=== PATIENT | female | born 1955 | race Caucasian/White ===

== ENCOUNTER → 2019-01-18 | Outpatient (CLI) | payer BC, SELFPAY | PROVIDERS: PCP Family Medicine Adolescent Medicine; Visit Provider Family Medicine Adolescent Medicine | DX: R06.02 Shortness of breath (principal) | CPT/HCPCS: 71046; 77063; 77067; 77080 ==

== ENCOUNTER 2020-01-31 08:07 | Outpatient (CLI) | payer BC, SELFPAY ==
--- NOTE | ~2020-01-31 | MM_ITS ---
EXAMINATION: MM screening [facility] BI w tomasa HISTORY: Screening TECHNIQUE: Craniocaudal and mediolateral oblique 3-D tomosynthesis images were obtained and synthetic 2-D images were generated. CAD analysis was submitted and interpreted. COMPARISON: Comparison to multiple prior studies sequentially, with oldest reviewed study dated 05/2014. BREAST PARENCHYMAL COMPOSITION: There are scattered areas of fibroglandular density. FINDINGS: Benign-appearing right breast masses are not significantly changed. Bilateral breast asymme tries are stable. There is no evidence of suspicious mass, calcification, or architectural distortion to suggest malignancy in either breast. There has been no suspicious interval change. IMPRESSION: 1. No mammographic evidence of malignancy. 2. Recommend routine screening mammography in one year. BI-RADS Category 2: Benign finding(s). Reviewed, dictated and finalized at location A.
== END 2020-01-31 08:08 | disposition home or self-care (01) ==
LOC: ANHIMG 08:11
PROVIDERS: PCP Family Medicine Adolescent Medicine; Visit Provider Obstetrics & Gynecology
DX: Z12.31 Encounter for screening mammogram for malignant neoplasm of breast (principal)
CPT/HCPCS: 77063; 77067

== ENCOUNTER 2020-02-10 08:37 | Outpatient (NON) | payer BC, SELFPAY ==
[2020-02-11 14:12] LABS: SARS-CoV-2 RNA PCR Positive
== END 2020-02-10 08:38 ==
LOC: ANHCOVIDDT 08:39
PROVIDERS: PCP Family Medicine Adolescent Medicine; Visit Provider Family Medicine Adolescent Medicine
DX: U07.1 COVID-19 (principal)
CPT/HCPCS: 87635; C9803; U0003

== ENCOUNTER 2021-02-04 08:44 | Outpatient (CLI) | payer OTHER, MEDICARE, SELFPAY ==
--- NOTE | ~2021-02-04 | MM_ITS ---
EXAMINATION: MM screening [facility] BI w tomasa HISTORY: Screening TECHNIQUE: Craniocaudal and mediolateral oblique 3-D tomosynthesis images were obtained and synthetic 2-D images were generated. CAD analysis was submitted and interpreted. COMPARISON: Comparison to multiple prior studies sequentially, with oldest reviewed study dated 09/2015. BREAST PARENCHYMAL COMPOSITION: There are scattered areas of fibroglandular density. FINDINGS: There is no evidence of suspicious mass, calcification, or architectural distortion to sugg est malignancy in either breast. There has been no suspicious interval change. IMPRESSION: 1. No mammographic evidence of malignancy. 2. Recommend routine screening mammography in one year. BI-RADS Category 1: Negative Reviewed, dictated and finalized at location A.
[2021-02-04 08:57] LABS: Basophils Percent Auto 0.6 % (0.2-1.2); Eosinophils Absolute Auto 0.2 K/mm3 (0-0.3); Eosinophils Percent Auto 2.4 % (0-4.4); Immature Granulocyte Absolute 0.02 K/mm3 (0.00-0.031); Immature Granulocyte Percent A 0.3 % (0-0.5); Lymphocytes Absolute Auto 1.29 K/mm3 (0.9-3.2); Lymphocytes Percent Auto 19.7 % (18.3-44.2); Mean Corpuscular HGB Conc 32.6 g/dl (32-36); Mean Corpuscular Hemoglobin 32.3 pg (26-34); Mean Corpuscular Volume 99.3 fl (80-100); Mean Platelet Volume 10.7 fl (7.4-10.4); Monocytes Absolute Auto 0.7 K/mm3 (0.1-0.6); Monocytes Percent Auto 10.1 % (2.6-8.5); Neutrophils Absolute Auto 4.4 K/mm3 (1.3-6.7); Neutrophils Percent Auto 66.9 % (45.5-73.1); Platelet Count Result 249 k/mm3 (150-375); Red Blood Count 4.33 M/mm3 (4.2-5.4); Red Cell Distribution Width 12.7 % (11.5-14.5); White Blood Count 6.6 K/mm3 (4.5-10.0)
[2021-02-04 09:31] LABS: Alanine Aminotransferase 18 U/L (4-35); Albumin Level 4.2 g/dL (3.5-5.1); Alkaline Phosphatase 86 U/L (38-126); Anion Gap 8 mmol/L (8-16); Aspartate Amino Transferase 31 U/L (14-36); Blood Urea Nitrogen 15 mg/dL (7-17); Calcium 9.4 mg/dL (8.4-10.2); Carbon Dioxide 27 mmol/L (22-30); Chloride 105 mmol/L (98-107); Cholesterol 181 mg/dL (0-200); Estimated Glomerular Filt Rate > 60; Glucose 104 mg/dL (65-110); HDL Direct 83 mg/dL; Potassium 4.5 mmol/L (3.4-5.0); Sodium 140 mmol/L (137-145); Triglycerides 83 mg/dL (<150)
[2021-02-04 09:42] LABS: LDL Cholesterol Direct 76 mg/dL
[2021-02-04 10:16] LABS: Vitamin D 25 Hydroxy 62.1 ng/mL
== END 2021-02-04 08:45 | disposition home or self-care (01) ==
PROVIDERS: PCP Family Medicine Adolescent Medicine; Visit Provider Obstetrics & Gynecology
DX: Z12.31 Encounter for screening mammogram for malignant neoplasm of breast (principal); Z79.890 Hormone replacement therapy; Z79.899 Other long term (current) drug therapy
CPT/HCPCS: 36415; 77063; 77067; 80053; 80061; 82306; 84443; 85025

== ENCOUNTER 2021-08-18 00:19 | Day surgery (SDC) | payer OTHER, MEDICARE, SELFPAY ==
[2021-08-11 14:21] VITALS: BMI 39.5
[2021-08-18 06:29] VITALS: BP 173/79; PULSE 90; RESP 16; TEMP 36.7; O2SAT 98
[2021-08-18] MEDS: LACTATED RINGERS 1,000 ML 150 ML IV CONT (06:44)
--- NOTE | 2021-08-18 07:17 | WPDANESEPPF ---
Anes - Initial Pre Proc Eval Procedure: Operation Date: 08/18/21 07:30 Proposed Procedures p Esophagogastroduodenoscopy & Screening Colonoscopy - Demond Reis MD Date/Time: 08/18/21 07:17 Surgeon: Demond Reis MD Pre Op Diagnosis: family hx colon polyps, GERD, neoplasm screening Patient Data Age: 66 Gender: F Height: 1.63 m Weight: 103 kg Last Vital Signs Temp 36.7 C 08/18/21 06:29 Pulse 90 08/18/21 06:29 Resp 16 08/18/21 06:29 BP 173/79 H 08/18/21 06:29 Pulse Ox 98 08/18/21 06:29 Allergies Allergy/AdvReac Type Severity Reaction Status Date / Time Penicillins Allergy Intermediate Rash Verified 08/18/21 06:27 Home Medications Medication Instructions Recorded Confirmed Type loratadine 10 mg tablet 10 mg PO DAILY 01/26/20 08/18/21 History multivitamin,cm-qwsn-kzteaiks 1 tablet PO DAILY 01/26/20 08/18/21 History naproxen sodium 220 mg tablet 440 mg PO DAILY 01/26/20 08/18/21 History omeprazole 20 mg capsule,delayed 20 mg PO DAILY 01/26/20 08/18/21 History release estradiol 1 g VAGINAL WEEKLY #42.5 g 05/02/21 08/18/21 Rx estradiol 0.025 mg/24 hr weekly 1 patch TRANSDERM WEEKLY #12 patch 05/24/21 08/18/21 Rx transdermal patch melatonin 10 mg capsule 10 mg PO QHS 07/29/21 08/18/21 History [place]-3 Plus Vitamin D3 1 tab-cap PO DAILY 08/11/21 08/18/21 History Patient hx anesthesia problems: none Family hx anesthesia problems: none Results Review: All pre-operative results and documents have been reviewed as part of the pre-operative evaluation. [facility] Past Medical History Medical History Acid reflux Allergies Menopausal disorder Surgical History Surgical History H/O: hysterectomy History of section History of cholecystectomy Knee joint replacement status Family History Family History Father Malignant neoplasm of prostate Family history of congenital heart disease Mother Family history of malignant neoplasm of breast in first degree relative Diabetes mellitus Social History Social History Smoking status: Never smoker Alcohol intake: current Substance use: never Substance use type: does not use Living arrangements: with family Spiritual care concerns: No Anes - Eval Final PreProcedure Day of Procedure 08/18/21 07:17 Patient weight: obese Heart: regular rate and rhythm Lungs: clear to auscultation and normal air movement Airway: Mallampati scale class II Neurological: alert and oriented Last oral intake: >/= 8 hours ASA classification: III Emergent: no Anesthetic plan: proceed Anesthesia type and monitoring: general GIVS Results Review: All pre-operative results and documents have been reviewed as part of the pre-operative evaluation. Informed Consent: The patient's anesthetic plan and its attendant risks and benefits were discussed with the patient/family/POA. Questions were solicited and answers provided to the satisfaction of the patient/family/POA.
--- NOTE | 2021-08-18 07:19 | WPDGICN ---
Assessment and Plan Assessment and plan (1) Family history of colonic polyps: Code(s): Z83.71 - Family history of colonic polyps Status: Acute Assessment and Plan: Patient's father has had colon polyps. For this reason screening colonoscopy is advised at this time. Further recommendations will be given after endoscopy. (2) GERD (gastroesophageal reflux disease): Code(s): K21.9 - Gastro-esophageal reflux disease without esophagitis Status: Acute Assessment and Plan: Patient has ongoing GE reflux appears stable taking omeprazole 20mg p.o. daily. Plan is for EGD surveillance to exclude any organic disease. Further recommendations will be given after endoscopy. GI Consult Note Consult date/time: 08/18/21 07:19 HPI: Tory Santoyo is a 66 year old female Presents for colonoscopy an EGD. Patient family history is significant her father had colon polyps. Has been more than 5 years since last endoscopy. She presents today for screening colonoscopy she states that her weight appetite and bowel movements are normal. She denies abdominal pain she has had no bleeding. Additionally patient has a history of heartburn and acid reflux. Current medications include omeprazole 20mg p.o. daily which controls her symptoms. She denies any dysphagia or bleeding. She presents today for EGD to assess for any organic disease. Further recommendations will be given after endoscopy. Review of Systems Review of Systems: All systems reviewed & are unremarkable except as noted in HPI and below PMFSH Past Medical History Medical History Acid reflux Allergies Menopausal disorder Surgical History Surgical History H/O: hysterectomy History of section History of cholecystectomy Knee joint replacement status Family History Family History Father Malignant neoplasm of prostate Family history of congenital heart disease Mother Family history of malignant neoplasm of breast in first degree relative Diabetes mellitus Social History Social History Smoking status: Never smoker Alcohol intake: current Substance use: never Substance use type: does not use Living arrangements: with family Spiritual care concerns: No Meds Home Medications and Allergies Home Medications Medication Instructions Recorded Confirmed Type loratadine 10 mg tablet 10 mg PO DAILY 01/26/20 08/18/21 History multivitamin,vg-nnbz-jrmrpoag 1 tablet PO DAILY 01/26/20 08/18/21 History naproxen sodium 220 mg tablet 440 mg PO DAILY 01/26/20 08/18/21 History omeprazole 20 mg capsule,delayed 20 mg PO DAILY 01/26/20 08/18/21 History release estradiol 1 g VAGINAL WEEKLY #42.5 g 05/02/21 08/18/21 Rx estradiol 0.025 mg/24 hr weekly 1 patch TRANSDERM WEEKLY #12 patch 05/24/21 08/18/21 Rx transdermal patch melatonin 10 mg capsule 10 mg PO QHS 07/29/21 08/18/21 History [place]-3 Plus Vitamin D3 1 tab-cap PO DAILY 08/11/21 08/18/21 History Allergies Allergy/AdvReac Type Severity Reaction Status Date / Time Penicillins Allergy Intermediate Rash Verified 08/18/21 06:27 Vital Signs Vital Signs - 24 hr 08/18/21 06:29 Temperature 98.0 F Pulse Rate 90 Respiratory Rate 16 Blood Pressure 173/79 H Pulse Oximetry 98 Exam Narrative: Physical exam reveals patient be alert. Vital signs stable. HEENT exam is unremarkable. Patient is anicteric. Lungs are clear to auscultation and percussion. Heart is without murmur or extra sounds. Abdominal exam bowel sounds are present soft nontender with no hepatosplenomegaly. Digital external rectal exam is normal.
[2021-08-18 08:05] VITALS: BP 127/62; PULSE 89; RESP 25; O2SAT 100
--- NOTE | 2021-08-18 08:05 | SUR.OPER ---
EGD START: 731; END: 741. COLONOSCOPY START: 748; END: 800.
[2021-08-18 08:15] VITALS: BP 135/61; PULSE 73; RESP 20; O2SAT 98
[2021-08-18 08:25] VITALS: BP 148/62; PULSE 72; RESP 15; O2SAT 100
== END 2021-08-18 08:39 | disposition home or self-care (01) ==
PROVIDERS: PCP Family Medicine Adolescent Medicine; Visit Provider Internal Medicine Gastroenterology
PROC: 0DJ08ZZ Inspection of Upper Intestinal Tract, Via Natural or Artificial Opening Endoscopic (ICD-10-PCS; CPT 43235; principal; 2021-08-18 07:30)
DX: Z12.11 Encounter for screening for malignant neoplasm of colon (principal); D12.2 Benign neoplasm of ascending colon; K64.8 Other hemorrhoids; K57.30 Diverticulosis of large intestine without perforation or abscess without bleeding; Z83.71 Family history of colonic polyps; K31.7 Polyp of stomach and duodenum; K21.9 Gastro-esophageal reflux disease without esophagitis; Z79.890 Hormone replacement therapy; E66.9 Obesity, unspecified; Z68.39 Body mass index [BMI] 39.0-39.9, adult
CPT/HCPCS: 45385; 43251; 43239; 87081; 88305; J2704; J7120

== ENCOUNTER 2021-09-01 08:20 | Outpatient (CLI) | payer OTHER, MEDICARE, SELFPAY ==
--- NOTE | 2021-09-07 11:36 | WPDHOMESLEEP ---
Sleep Study - Home Unattended Date of Study: 09/01/21 Ordering Provider: Rodrick Michel APRN Interpreting Provider: Betsey Tompkins MD Home Sleep Study Type: Watch PAT Height: 1.63 m Weight: 102.058 kg Body Mass Index: 38.6 Neck Circumference (inches): 15 [place]: 7 Reason for Sleep Study Waking during the night not able to breathe Sleep History Tory Santoyo is a 66 year old female with 3 years of waking at night dreaming of her mother who and not being able to breathe at night. She was prescribed trazodone 50 mg which she used for about a month but it made her feel weird. During the night she wakes up and moves from the bed to the recliner. She wakes up several times during the night. Her father 89 years old has a history of poor sleep. Her mother at age 80 and was always sleeping in a recliner. She got a wedge to sleep on and got a new bed as well as the noise maker at night to help. She occasionally awakens from sleep feeling short of breath and occasionally awakens at night with heartburn, belching or coughing. She frequently snores and occasionally this is loud enough that others complain about it. She constantly has trouble sleeping with a cold. She occasionally wakes up gasping for breath at night. She frequently has breathing problems at night observed by others. She rarely sweats excessively at night. She does not notice her heart pounding or beating irregularly at night. She does not fall asleep during the day, does not fall asleep involuntarily or while driving. She does not have loss of muscle tone with strong emotion. She does not have daytime difficulties due to excessive sleepiness. She works full-time as a gastroenterology medical office scheduler. She does not feel paralyzed on waking or falling asleep. She does not have vivid dreamlike scenes upon awakening or falling asleep. She does not feel afraid to go to sleep. She rarely has nightmares. She rarely remembers her dreams. She occasionally has racing thoughts, feelings of sadness, depression and anxiety. She rarely has muscular tension. She does not notice parts of her body jerking and she does not kick at night. She occasionally has aching feelings in her legs at night. She occasionally has leg pain at night. She does not have morning jaw pain. She occasionally grinds her teeth during sleep. She occasionally is bothered by pain during the day and occasionally awakened by pain at night. She frequently wakes up feeling stiff in the morning with sore achy muscles or pain in the spine. She takes sedatives. She also takes antacids regularly. She reports a 10 lb weight gain in the last year. Normal bedtime is 9:30 p.m. falling asleep within 5 minutes typically waking 2-3 times at night for unclear reasons. If she has used a sedative earlier in the night she is able to fall asleep again pretty easily. If she has not taken a sedative earlier in the night it may take her an hour to fall asleep. When she wakes at night she gets up from the bed and moved to the recliner. She wakes the morning between 430 and 5:00 a.m.. Her weekend schedule is very similar. She may wake as late as 6:00 a.m.. She does not take naps in the afternoon or evening. She does not feel refreshed after a 10 or 15 minute nap. She feels better in the morning compared to other times of day. She occasionally has morning headaches. Only occasionally does she awaken feeling refreshed. She takes melatonin 10 mg at night; This may be the sedative that she is referring to.. Habits: Never smoked tobacco. Caffeine 5-6 diet Pepsi's per week so less than 1 per day. No alcohol or recreational drugs. [facility] Past Medical History Medical History Acid reflux Allergies Menopausal disorder Surgical History Surgical History H/O: hysterectomy History of section History
[2021-09-07 11:49] VITALS: BMI 38.6
== END 2021-09-02 10:09 | disposition home or self-care (01) ==
LOC: ANHCSM 08:20
PROVIDERS: PCP Family Medicine Adolescent Medicine; Visit Provider Nurse Practitioner Family
DX: G47.9 Sleep disorder, unspecified (principal); G47.33 Obstructive sleep apnea (adult) (pediatric)
CPT/HCPCS: 95800

== ENCOUNTER 2021-09-16 07:41 | Outpatient (CLI) | payer OTHER, MEDICARE, SELFPAY ==
--- NOTE | 2021-10-07 12:47 | WPDSLEEPSTUD ---
Sleep Study Date of Study: 09/16/21 Ordering Provider: Rodrick Michel APRN Interpreting Physician: Mahsa Franco, Sleep Study Type: BiPAP Titration Height: 1.63 m Weight: 104.326 kg Body Mass Index: 39.4 Neck Circumference (inches): 15.5 [place]: 3 Reason for Sleep Study The patient had a home sleep test using WatchPat on September 01, 2021 shows severe obstructive sleep apnea with an AHI 49.1, worse during REM and worse in the supine position.? Patient desaturated to 70% and spent 10.5 minutes, 2.8% of the night below 88%.? Sleep History Tory Santoyo is a 66 year old female with? 3 years of waking at night dreaming of her mother who and not being able to breathe at night.? She was prescribed trazodone 50 mg which she used for about a month but it made her feel weird.? During the night she wakes up and moves from the bed to the recliner.? She wakes up several times during the night.? Her father 89 years old has a history of? poor sleep.? Her mother at age 80 and was always sleeping in a recliner.? She got a wedge to sleep on and got a new bed as well as the noise maker at night to help.? She occasionally awakens from sleep feeling short of breath and occasionally awakens at night with heartburn, belching or coughing.? She frequently snores and occasionally this is loud enough that others complain about it.? She constantly has trouble sleeping with a cold.? She occasionally wakes up gasping for breath at night.? She frequently has breathing problems at night observed by others.? She rarely sweats excessively at night.? She does not notice her heart pounding or beating irregularly at night.? She does not fall asleep during the day, does not fall asleep involuntarily or while driving.? She does not have loss of muscle tone with strong emotion.? She does not have daytime difficulties due to excessive sleepiness.? She works full-time as a gastroenterology maintenance scheduler.? She does not feel paralyzed on waking or falling asleep.? She does not have vivid dreamlike scenes upon awakening or falling asleep.? She does not feel afraid to go to sleep.? She rarely has nightmares.? She rarely remembers her dreams.? She occasionally has racing thoughts, feelings of sadness, depression and anxiety.? She rarely has muscular tension.? She does not notice parts of her body jerking and she does not kick at night.? She occasionally has aching feelings in her legs at night.? She occasionally has leg pain at night.? She does not have morning jaw pain.? She occasionally grinds her teeth during sleep.? She occasionally is bothered by pain during the day and occasionally awakened by pain at night.? She frequently wakes up feeling stiff in the morning with sore achy muscles or pain in the spine.? She takes sedatives.? She also takes antacids regularly. ? She reports a 10 lb weight gain in the last year. Normal bedtime is 9:30 p.m. falling asleep within 5 minutes typically waking 2-3 times at night for unclear reasons.? If she has used a sedative earlier in the night she is able to fall asleep again pretty easily.? If she has not taken a sedative earlier in the night it may take her an hour to fall asleep.? When she wakes at night she gets up from the bed and moved to the recliner.? She wakes the morning between? 430 and 5:00 a.m..? Her weekend schedule is very similar.? She may wake as late as 6:00 a.m..? She does not take naps in the afternoon or evening.? She does not feel refreshed after a 10 or 15 minute nap.? She feels better in the morning compared to other times of day.? She occasionally has morning headaches.? Only occasionally does she awaken feeling refreshed. ? She takes melatonin 10 mg at night; ? This may be the sedative that she is referring to.. Habits:? Never smoked tobacco.? Caffeine 5-6 diet Pepsi's per week so less than 1 per day.? No alcohol or recreational drugs. [facility] Past Medical History Medical History (Reviewed 10/07/21 @ 12:49 by Mahsa Franco,
[2021-10-07 15:44] VITALS: BMI 39.4
--- NOTE | 2022-06-21 16:17 | SLEEP ---
pt returned machine to frankie
== END 2021-09-17 06:48 | disposition home or self-care (01) ==
LOC: ANHCSM 07:45
PROVIDERS: PCP Family Medicine Adolescent Medicine; Visit Provider Nurse Practitioner Family
DX: G47.33 Obstructive sleep apnea (adult) (pediatric) (principal)
CPT/HCPCS: 95811

== ENCOUNTER 2022-03-18 08:19 | Outpatient (CLI) | payer OTHER, MEDICARE, SELFPAY ==
--- NOTE | ~2022-03-18 | MM_ITS ---
EXAMINATION: MM screening [facility] w to[facility]a HISTORY: Screening TECHNIQUE: Craniocaudal and mediolateral oblique 3-D tomosynthesis images were obtained and synthetic 2-D images were generated. CAD analysis was submitted and interpreted. COMPARISON: Comparison to multiple prior studies sequentially, with oldest reviewed study dated 09/2015. BREAST PARENCHYMAL COMPOSITION: There are scattered areas of fibroglandular density. FINDINGS: There is no evidence of suspicious mass, calcification, or architectural distortion to sugg est malignancy in either breast. There has been no suspicious interval change. IMPRESSION: 1. No mammographic evidence of malignancy. 2. Recommend routine screening mammography in one year. BI-RADS Category 1: Negative Reviewed, dictated and finalized at location A. OF QUALITY
== END 2022-03-18 08:20 | disposition home or self-care (01) ==
PROVIDERS: PCP Family Medicine Adolescent Medicine; Visit Provider Obstetrics & Gynecology
DX: Z12.31 Encounter for screening mammogram for malignant neoplasm of breast (principal)
CPT/HCPCS: 77063; 77067

== ENCOUNTER 2022-03-29 07:01 | Outpatient (CLI) | payer OTHER, MEDICARE, SELFPAY ==
[2022-03-29 07:32] LABS: Alanine Aminotransferase 18 U/L (6-35); Albumin Level 4.3 g/dL (3.5-5.1); Alkaline Phosphatase 90 U/L (38-126); Anion Gap 7 mmol/L (8-16); Aspartate Amino Transferase 28 U/L (14-36); Basophils Percent Auto 0.6 % (0.2-1.2); Bilirubin,Total 1.1 mg/dL (0.2-1.3); Blood Urea Nitrogen 19 mg/dL (7-17); Calcium 9.1 mg/dL (8.4-10.2); Carbon Dioxide 26 mmol/L (22-30); Chloride 107 mmol/L (98-107); Cholesterol 188 mg/dL (0-200); Eosinophils Absolute Auto 0.1 K/mm3 (0-0.3); Eosinophils Percent Auto 2.1 % (0-4.4); Estimated Glomerular Filt Rate > 60; Glucose 103 mg/dL (65-110); HDL Direct 67 mg/dL; Hematocrit 44.2 % (37.0-47.0); Hemoglobin 14.2 g/dL (12.0-15.0); Immature Granulocyte Absolute 0.02 K/mm3 (0.00-0.031); Immature Granulocyte Percent A 0.3 % (0-0.5); Lymphocytes Percent Auto 17.6 % (18.3-44.2); Mean Corpuscular HGB Conc 32.1 g/dl (32-36); Mean Corpuscular Hemoglobin 31.3 pg (26-34); Mean Corpuscular Volume 97.4 fl (80-100); Mean Platelet Volume 10.5 fl (7.4-10.4); Monocytes Absolute Auto 0.6 K/mm3 (0.1-0.6); Neutrophils Absolute Auto 4.8 K/mm3 (1.3-6.7); Neutrophils Percent Auto 70.4 % (45.5-73.1); Platelet Count Result 278 k/mm3 (150-375); Potassium 4.5 mmol/L (3.4-5.0); Red Blood Count 4.54 M/mm3 (4.2-5.4); Sodium 140 mmol/L (137-145); Triglycerides 113 mg/dL (<150); White Blood Count 6.8 K/mm3 (4.5-10.0)
[2022-03-29 07:42] LABS: LDL Cholesterol Direct 80 mg/dL
[2022-03-29 08:04] LABS: Vitamin D 25 Hydroxy 48.2 ng/mL
== END 2022-03-29 07:02 | disposition home or self-care (01) ==
LOC: ANHLAB 07:05
PROVIDERS: PCP Family Medicine Adolescent Medicine; Visit Provider Obstetrics & Gynecology
DX: Z00.00 Encounter for general adult medical examination without abnormal findings (principal)
CPT/HCPCS: 36415; 80053; 80061; 82306; 84443; 85025

== ENCOUNTER 2022-04-22 08:48 | Outpatient (CLI) | payer OTHER, MEDICARE, SELFPAY ==
--- NOTE | ~2022-04-22 | DEXA_ITS ---
Bone Density Report Name: ALEXANDRA LARA Age: 67 Sex: Female Ethnicity: White Date of : 1955 Indication: postmenopausal; screening for osteoporosis; height loss; hysterectomy; Referring Provider: THAD VIRK Study: Bone densitometry was performed. Exam Date: April 22, 2022 Accession number: [id number] Bone Density: Region BMD T-score Z-score Classification AP Spine(L1-L4) 1.278 2.1 4.0 Normal Femoral Neck (Left) 0.841 -0.1 1.6 Normal Total Hip (Left) 0.989 0.4 1.7 Normal Femoral Neck (Right) 0.795 -0.5 1.1 Normal Total Hip (Right) 0.986 0.4 1.7 Normal Total Hip Mean 0.987 0.4 1.7 Normal World Health Organization criteria for BMD impression classify patients as: Normal (T-score at or above -1.0), Osteopenia (T-score between -1.0 and -2.5), or Osteoporosis (T-score at or below -2.5). 10-year Fracture Risk: FRAX not reported because: All T-scores for Spine Total, Hip Total, Femoral Neck at or above -1.0 Clinical Information Provided by Patient: Has used the following medications: Vitamin D, Calcium Has the following medical conditions: Hysterectomy Patient maximum height was 65 Menopause Age: 48 Drinks caffeinated beverages Onset of menses at age 12 Number of children 1 Impression: The patient has normal bone mass. Discussion: BONE DENSITY IS ABOVE THE MINIMUM DESIRABLE LEVEL AT ALL SKELETAL SITES TESTED. This patient?s bone mineral density is above the minimum desirable level (T-score -1.0 or better) at all sites measured. The patient should follow a healthful lifestyle (good nutrition with adequate calcium and vitamin D, and appropriate weight-bearing exercise). Follow-Up: Consider repeating this study in 5 years or sooner if there is some new clinical indication. Reported by: MILTON on 04/22/2022 9:10:00 AM. Reviewed, dictated and finalized at location ASena ESPINOZA
== END 2022-04-22 08:49 | disposition home or self-care (01) ==
PROVIDERS: PCP Family Medicine Adolescent Medicine; Visit Provider Obstetrics & Gynecology
DX: Z13.820 Encounter for screening for osteoporosis (principal); Z78.0 Asymptomatic menopausal state
CPT/HCPCS: 77080

== ENCOUNTER 2023-04-26 07:37 | Outpatient (CLI) | payer MEDICARE, SELFPAY ==
--- NOTE | ~2023-04-26 | MM_ITS ---
EXAMINATION: MM screening [facility] w tomasa HISTORY: Screening mammogram, family history of breast cancer in her mother. TECHNIQUE: Craniocaudal and mediolateral oblique 3-D tomosynthesis images were obtained and synthetic 2-D images were generated. CAD analysis was submitted and interpreted. COMPARISON: 03/18/2022, 02/04/2021, 01/31/2020 BREAST PARENCHYMAL COMPOSITION: There are scattered areas of fibroglandular density. FINDINGS: No suspicious mass, calcification, or architectural distortion are identified in either dorita ast to suggest malignancy. There has been no suspicious interval change. IMPRESSION: 1. No mammographic evidence of malignancy. 2. Recommend routine screening mammography in one year. BI-RADS Category 1: Negative Reviewed, dictated and finalized at location A. INKER
== END 2023-04-26 07:38 | disposition home or self-care (01) ==
LOC: ANHIMG 07:38
PROVIDERS: PCP Family Medicine Adolescent Medicine; Visit Provider Obstetrics & Gynecology
DX: Z12.31 Encounter for screening mammogram for malignant neoplasm of breast (principal)
CPT/HCPCS: 77063; 77067

== ENCOUNTER 2023-09-01 10:50 | Emergency (ER) | payer MEDICARE, SELFPAY ==
[2023-09-01] VITALS (11 sets, daily range): BP systolic 150–194; BP diastolic 69–101; PULSE 79–108; RESP 12–20; TEMP 36.6–36.8; O2SAT 98–100
--- NOTE | ~2023-09-01 | XR_ITS ---
XR chest 2V DATE: 09/01/2023 11:53 INDICATION: Dizziness. Left eye blurring. TECHNIQUE: PA and lateral views COMPARISON: 03/31/2020 preemployment PA chest FINDINGS: Normal heart size. Mild aortic unfolding. No hilar or mediastinal enlargement. No pulmonary infiltrate or consolidation, pleural effusion or pulmonary vascular congestion or pneumo thorax. Status post cholecystectomy Diffuse hepatic skeletal hyperostosis of the thoracic spine and multilevel degenerative disc disease of the lumbar spine. Right rotator cuff atrophy. IMPRESSION: No active cardiopulmonary disease Reviewed, dictated and finalized at location A.
--- NOTE | ~2023-09-01 | CT_ITS ---
EXAMINATION: CT brain wo con DATE: 09/01/2023 14:23 INDICATION: Headache. Dizziness. TECHNIQUE: Computed tomography (CT) of the head was performed without intravenous contrast. The mA wa s adjusted according to patient size. Iterative reconstruction technique was employed. The dose-lengt h product was 529.67 mGy-cm. COMPARISON: None FINDINGS: There is no intracranial hemorrhage, acute infarction, or abnormal intracranial mass lesion . The ventricles are normal in size. There is an old blowout fracture of medial wall of left orbit. T here is mild mucosal thickening in the ethmoid sinuses. The mastoid air cells are normal. IMPRESSION: 1. Normal brain. Reviewed, dictated and finalized at location E. IMPRESSION: 1. Normal brain.
--- NOTE | 2023-09-01 11:16 | ECG_ITS ---
[facility] [address] Test Date: 2023-09-01 Pat Name: Tory Santoyo Department: Room: Gender: F Fast Food Manager: : 1955 Requested By: Flaco Leonardo Order Number: [id number] Deja MD: Gokul Chung M.D. Measurements Intervals Vici Rate: 94 P: 34 HI: 166 QRS: -50 QRSD: 118 T: 60 QT: 366 QTc: 460 Interpretive Statements SINUS RHYTHM LEFT ANTERIOR FASCICULAR BLOCK [QRS AXIS <= -45, QR IN I, RS IN II] LEFT VENTRICULAR HYPERTROPHY AND ST-T CHANGE [VOLTAGE CRITERIA PLUS ST/T ABNORMALITY] No previous ECG available for comparison Electronically Signed On 09-01-2023 14:19:02 CDT by Gokul Chung M.D.
[2023-09-01 11:44] LABS: Basophils Percent Auto 0.4 % (0.2-1.2); Eosinophils Absolute Auto 0.1 K/mm3 (0-0.3); Eosinophils Percent Auto 0.8 % (0-4.4); Hematocrit 44.6 % (37.0-47.0); Hemoglobin 14.8 g/dL (12.0-15.0); Immature Granulocyte Absolute 0.02 K/mm3 (0.00-0.031); Immature Granulocyte Percent A 0.2 % (0-0.5); Lymphocytes Absolute Auto 1.34 K/mm3 (0.9-3.2); Lymphocytes Percent Auto 16.1 % (18.3-44.2); Mean Corpuscular HGB Conc 33.2 g/dl (32-36); Mean Corpuscular Hemoglobin 31.5 pg (26-34); Mean Corpuscular Volume 94.9 fl (80-100); Mean Platelet Volume 10.7 fl (7.4-10.4); Monocytes Absolute Auto 0.8 K/mm3 (0.1-0.6); Monocytes Percent Auto 9.2 % (2.6-8.5); Neutrophils Absolute Auto 6.1 K/mm3 (1.3-6.7); Neutrophils Percent Auto 73.3 % (45.5-73.1); Platelet Count Result 266 k/mm3 (150-375); Red Cell Distribution Width 12.9 % (11.5-14.5); White Blood Count 8.3 K/mm3 (4.5-10.0)
[2023-09-01 11:53] LABS: Alanine Aminotransferase 17 U/L (6-35); Albumin Level 4.6 g/dL (3.5-5.1); Alkaline Phosphatase 88 U/L (38-126); Anion Gap 8 mmol/L (4-12); Aspartate Amino Transferase 31 U/L (14-36); Blood Urea Nitrogen 20 mg/dL (7-17); Calcium 9.5 mg/dL (8.4-10.2); Carbon Dioxide 24 mmol/L (22-30); Chloride 107 mmol/L (98-107); Estimated CRCL calculation 89 ml/min; Estimated Glomerular Filt Rate > 60; Glucose 94 mg/dL (65-110); Potassium 4.5 mmol/L (3.4-5.0); Sodium 139 mmol/L (137-145)
[2023-09-01 12:00] LABS: Appearance Urine Clear (Clear); Bacteria Urine None Seen /hpf; Bilirubin Urine Negative (Negative); Blood Urine Negative (Negative); Color Urine Yellow (Yellow); Glucose Urine UA Negative (Negative); Ketones Urine Negative (Negative); Leukocyte Esterase Ur 2+ LEU/UL (Negative); Nitrate Urine Negative (Negative); Non Pathogenic Casts 0-2; Protein Urine 1+ mg/dL (Negative); RBC Urine 0-2 /hpf (0-2); Specific Grav Ur 1.016 (1.001-1.035); Squamous Epithelial Cell Urine None Seen /hpf (Few); Urobilinogen Urine 0.2 mg/dL (<2.0); WBC Urine 51-100 /hpf (0-3)
[2023-09-01 12:03] LABS: Add Urine Microscopic? YES
[2023-09-01 12:08] LABS: Troponin I < 0.012 ng/mL (0.000-0.034)
--- NOTE | 2023-09-01 14:15 | ED.DIZZY ---
HPI - Dizziness General Chief Complaint: Dizziness Stated Complaint: Dizzy, Blurred Vision Time Seen by Provider: 09/01/23 12:56 History of Present Illness HPI Narrative: 68-year-old female present to the emergency department for evaluation for multiple issues including hypertension, left eye twitching and headache. Patient states over the last few days she has had 2 episodes where she had blurred vision in her left eye that was associated with what she describes as nystagmus of the left eye. Episodes lasted approximately 15-30 seconds and resolved spontaneously. Patient states her vision was blurred but denies any other neurologic symptoms. Patient vision return to normal once the fasciculations stopped. Patient denies any prior history of hypertension but states that she does not check her blood pressure at home. Patient states her blood pressures are always elevated when she goes see her doctor's office. Patient denies any current chest pain or shortness of breath. Patient states she does not feel like her blood pressure is elevated at time. Patient does report some increased sinus congestion sinus pressure affecting left face Related Data Home Medications Medication Instructions Recorded Confirmed loratadine 10 mg tablet (Allergy 10 mg PO DAILY 01/26/20 05/09/23 Relief (loratadine)) multivitamin,ih-[id number] 1 tablet PO DAILY 01/26/20 05/09/23 (Complete Multivitamin tablet) omeprazole 20 mg capsule,delayed 20 mg PO DAILY 01/26/20 05/09/23 release [place]-3 Plus Vitamin D3 1 tab-cap PO DAILY 08/11/21 05/09/23 naproxen 250 mg tablet 250 mg PO BID PRN 05/09/23 05/09/23 Allergies Allergy/AdvReac Type Severity Reaction Status Date / Time Penicillins Allergy Intermediate Rash Verified 09/01/23 10:54 Review of Systems Review of Systems: All systems reviewed & are unremarkable except as noted in HPI and below PMFSH Past Medical History Medical History Acid reflux Allergies Menopausal disorder Obstructive sleep apnea Surgical History Surgical History H/O: hysterectomy History of section History of cholecystectomy History of total left knee replacement (2012) Family History Family History Father Malignant neoplasm of prostate Family history of congenital heart disease Mother Family history of malignant neoplasm of breast in first degree relative Diabetes mellitus Social History Social History Smoking status: Never smoker Alcohol intake: current Substance use: never Substance use type: does not use Do You Feel Safe in your Home?: Yes Lack of Transportation: No Lack of Food: Never True Current Housing: I Have Housing Concerned About Future Housing: No Difficulty Paying Gas/Electric Bills: No Difficulty Paying for Meds: No Currently Unemployed: No Education: High School Diploma/GED Difficulty w/ Childcare or Family Care: No Living arrangements: with family Spiritual care concerns: No Exam Narrative: APPEARANCE: Well appearing, no pain, no distress, well-nourished. HEAD: normocephalic, atraumatic. EYES: PERRLA/EOMI, conjunctivae clear. NOSE: Normal no drainage EARS:TMS clear with good light reflex. THROAT: Pharynx clear, no exudate. NECK: Supple. No adenopathy, no masses. RESPIRATORY: Airway patent, respirations nonlabored. Clear to auscultation bilaterally, no rales, rhonchi, wheezing. CARDIOVASCULAR: Regular rate and rhythm without murmurs rubs or gallops. ABDOMINAL: Soft, nontender, nondistended, normal bowel sounds MUSCULOSKELETAL: Moves all extremities. Strength/ROM intact, No edema, No calf tenderness. NEURO: Alert. Cranial nerves II through XII intact. Good gait. Good coordination SKIN: Warm, dry. Normal Color Cours
[2023-09-01] MEDS: hydrALAZINE HCL 20 MG/ML VIAL 10 MG IV PUSH (15:07)
== END 2023-09-01 16:22 | disposition home or self-care (01) ==
PROVIDERS: Emergency Provider Emergency Medicine; PCP Family Medicine Adolescent Medicine
DX: N39.0 Urinary tract infection, site not specified (principal); I10 Essential (primary) hypertension; G47.30 Sleep apnea, unspecified
CPT/HCPCS: 36415; 70450; 71046; 80053; 81001; 84484; 85025; 87086; 87088; 93005; 96365; 96375; 99284; J0360; J0696

== ENCOUNTER 2023-09-19 07:38 | Outpatient (CLI) | payer MEDICARE, SELFPAY ==
--- NOTE | ~2023-09-19 | US_ITS ---
EXAMINATION: US carotid duplex BI DATE: 09/19/2023 08:26 INDICATION: Intermittent blurred vision TECHNIQUE: Grayscale, color Doppler, and pulsed Doppler images of the cervical carotid arteries were obtained. The degree of vessel stenosis is placed in one of the following categories: normal, <50%, 5 0-69%, >=70% but less than near-occlusion, near-occlusion, or total occlusion. Note that percent sten osis relative to normal distal artery lumen diameter is indirectly measured from velocity measurement s as described by Kingsley, et al. Radiology 2003; 229:340-346. Notes: Normal: Peak systolic velocity <125 centimeters/sec and no plaque <50%. Peak systolic velocity <125 ( EDV <40; ICA/CCA PSV ratio <2.0; used these factors only a tandem lesions or low cardiac output or co ntralateral disease) 50-69 %: PSV 125-230 (EDV 40-100; ratio 2-4) >= 70% but less than near occlusion: PSV greater than 230 (EDV > 100; ratio> 4.0) Near Occlusion: PSV that is variable; markedly narrowed lumen Occlusion: Absent flow on color/spectral Doppler and no lumen on echeverria scale. COMPARISON: None. FINDINGS: RIGHT: The right common carotid artery (CCA) peak systolic velocity (PSV) is 83 cm/s. The right internal car otid artery (ICA) PSV is 103 cm/s. The right ICA end-diastolic velocity (EDV) is 23 cm/s. The right I CA/CCA PSV ratio is 1.2. The external carotid artery (ECA) PSV is 142 cm/s. There is antegrade flow i n the right vertebral artery. LEFT: The left CCA PSV is 90 cm/s. The left ICA PSV is 120 cm/s. The left ICA EDV is 22 cm/s. The left ICA/ CCA PSV ratio is 1.3. The ECA PSV is 123 cm/s. There is antegrade flow in the left vertebral artery . IMPRESSION: 1. Less than 50% stenosis in the right internal carotid artery by sonographic criteria. 2. Less than 50% stenosis in the left internal carotid artery by sonographic criteria. Reviewed, dictated and finalized at location B. IMPRESSION: 1. Less than 50% stenosis in the right internal carotid artery by sonographic c bahman. 2. Less than 50% stenosis in the left internal carotid artery by sonographic cr ricardo.
== END 2023-09-19 07:39 | disposition home or self-care (01) ==
PROVIDERS: PCP Family Medicine Adolescent Medicine; Visit Provider Family Medicine Adolescent Medicine
DX: I65.23 Occlusion and stenosis of bilateral carotid arteries (principal); H53.8 Other visual disturbances
CPT/HCPCS: 93880

== ENCOUNTER 2024-05-13 08:12 | Outpatient (CLI) | payer MEDICARE, SELFPAY ==
--- NOTE | ~2024-05-13 | MM_ITS ---
EXAMINATION: MM screening stephanie BI w tomasa HISTORY: Screening TECHNIQUE: Craniocaudal and mediolateral oblique 3-D tomosynthesis images were obtained and synthetic 2-D images were generated. CAD analysis was submitted and interpreted. COMPARISON: Comparison to multiple prior studies sequentially, with oldest reviewed study dated 12/31. BREAST PARENCHYMAL COMPOSITION: Not dense: There are scattered areas of fibroglandular density. FINDINGS: There is no evidence of suspicious mass, calcification, or architectural distortion to sugg est malignancy in either breast. There has been no suspicious interval change. IMPRESSION: 1. No mammographic evidence of malignancy. 2. Recommend routine screening mammography in one year. BI-RADS Category 1: Negative Reviewed, dictated and finalized at location B. WARDEN
== END 2024-05-13 08:13 | disposition home or self-care (01) ==
PROVIDERS: PCP Family Medicine Adolescent Medicine; Visit Provider Obstetrics & Gynecology
DX: Z12.31 Encounter for screening mammogram for malignant neoplasm of breast (principal)
CPT/HCPCS: 77063; 77067

== ENCOUNTER 2025-01-01 10:01 | Outpatient (CLI) | payer MEDICARE, SELFPAY ==
[2025-01-01 10:26] LABS: Hematocrit 39.3 % (37.0-47.0); Hemoglobin 12.9 g/dL (12.0-15.0)
[2025-01-01 10:41] LABS: Albumin Level 3.9 g/dL (3.5-5.1); Estimated Glomerular Filt Rate > 60
--- NOTE | 2025-01-01 11:29 | ECG_ITS ---
Test Date: 2025-01-01 11:41:19 Measurements Intervals [place] Rate: 83 P: 15 DE: 162 QRS: -40 QRSD: 120 T: 32 QT: 377 QTc: 445 Interpretive Statements SINUS RHYTHM LEFT AXIS DEVIATION INTRAVENTRICULAR CONDUCTION DELAY VOLTAGE CRITERIA FOR LVH CANNOT R/O SEPTAL INFARCT, AGE INDETERMINATE ABNORMAL ECG Compared to ECG 09/01/2023 11:30:50 NO SIGNIFICANT CHANGE Electronically Signed On 01-01-2025 11:45:36 CDT by Felice Castillo D.O.
== END 2025-01-01 10:02 | disposition home or self-care (01) ==
PROVIDERS: PCP Family Medicine Adolescent Medicine; Visit Provider Orthopaedic Surgery
DX: R94.31 Abnormal electrocardiogram [ECG] [EKG] (principal); Z01.818 Encounter for other preprocedural examination; M17.11 Unilateral primary osteoarthritis, right knee; I10 Essential (primary) hypertension
CPT/HCPCS: 36415; 82040; 82565; 85014; 85018; 93005

== ENCOUNTER 2025-02-02 07:55 | Outpatient (CLI) | payer MEDICARE, SELFPAY ==
--- NOTE | 2025-02-02 | EST_ITS ---
Patient Info Name: Tory Santoyo Age: 69 years : 1955 Gender: Female Ht: 63 in Wt: 216 lbs BSA: 2.14 m2 HR: 67 bpm BP: 155 / 69 mmHg Exam Date: 02/02/2025 9:48 AM Patient Status: O Admit Date: 02/02/2025 Exam Type: CA stress rajiv w NM A regadenoson stress test was performed. Staff Referring Physician: Matthew Locke MD Attending Provider: Matthew Locke MD Exercise Technologist: Fouzia Cespedes Exercise Physician: Felice Castillo DO Summary 1. 1. Negative lexiscan stress test for ischemic ST changes by ECG criteria. 2. 2. Baseline hypertension. 3. 3. Nuclear scan to follow and will be reported separately. Please correlate with it. 4. 4. Patient informed of the above results. Protocol: Lexiscan Stress ECG Details Stage: REST Duration (min): 1 min : 2 sec HR (bpm): 69 SBP (mmHg): 155 DBP (mmHg): 69 Stage: REST Duration (min): 3 min : 7 sec HR (bpm): 68 SBP (mmHg): 155 DBP (mmHg): 69 Stage: STAGE 1 Duration (min): 1 min : 0 sec HR (bpm): 96 SBP (mmHg): 155 DBP (mmHg): 69 Stage: RECOVERY Duration (min): 1 min : 0 sec HR (bpm): 96 SBP (mmHg): 159 DBP (mmHg): 68 Stage: RECOVERY Duration (min): 2 min : 0 sec HR (bpm): 92 SBP (mmHg): 159 DBP (mmHg): 68 Stage: RECOVERY Duration (min): 3 min : 0 sec HR (bpm): 90 SBP (mmHg): 138 DBP (mmHg): 71 Stage: RECOVERY Duration (min): 3 min : 18 sec HR (bpm): 87 SBP (mmHg): 138 DBP (mmHg): 71 Rest HR: 68 bpm Peak HR: 99 bpm Rest Sys BP: 155 mmHg Peak Sys BP: 159 mmHg Max Pred HR: 151 bpm % Max Pred HR: 66 % Target HR: 128 bpm Max RPP: 15,741 bpm*mmHg Termination Reason: Completed protocol Cardiac Symptoms: Shortness of breath Total Time: 1 min : 0 sec Rest Smith BP: 69 mmHg Peak Smith BP: 68 mmHg Total Dose: 0.4 mg Resting ECG Sinus rhythm, delayed precordial R/S transition. Stress ECG No ST changes. Arrhythmias None. Report Signatures
--- NOTE | ~2025-02-02 | NM_ITS ---
EXAMINATION: NM rajiv stress w perfusion DATE: 02/02/2025 11:51 INDICATION: Primary hypertension TECHNIQUE: Rest images were obtained following intravenous administration of 10.9 mCi Tc99m tetrofosmin (Myoview). The patient was infused intravenously with Lexiscan (Regadenoson). Then, 31.8 mCi Tc99m tetrofosmin (Myoview) was administered intravenously, and stress images were obtained. Data was leandro nstructed into short axis and horizontal and vertical long axis SPECT images. Gated SPECT images were also obtained. COMPARISON: None. FINDINGS: There is no definite reversible or fixed perfusion abnormality to suggest ischemia or infarction. There is normal left ventricular chamber size, wall motion and ejection fraction. Left ventricular ejection fraction measures 66%. IMPRESSION: 1. Normal myocardial perfusion at rest and during stress. 2. Left ventricular ejection fraction measuring 66%. Reviewed, dictated and finalized at location A. OLL ACCOUNTING MANAGER
== END 2025-02-02 07:56 | disposition home or self-care (01) ==
PROVIDERS: PCP Family Medicine Adolescent Medicine; Visit Provider Family Medicine Adolescent Medicine
DX: R94.31 Abnormal electrocardiogram [ECG] [EKG] (principal); M17.11 Unilateral primary osteoarthritis, right knee; I10 Essential (primary) hypertension
CPT/HCPCS: 78452; 93017; A9502; J2785

== ENCOUNTER 2025-02-06 11:26 | Outpatient (CLI) | payer MEDICARE, SELFPAY ==
--- NOTE | 2025-02-06 12:24 | PC.NURSE ---
[facility] has started construction of its new state of the art ER which will open Spring 2026. With this, we anticipate parking may be a challenge for some our surgical patients and families. Parking spaces are limited but are available for all Surgical, obstetrics, and ER patients sharing this lot. If you arrive and find you are having a hard time finding a parking space, please note that we understand the challenges, please drive around the hospital and park near Hospital Entrance 1. When you enter this entrance, you can ask a volunteer to direct or take you back to the surgical waiting area to check in. We appreciate everyone?s understanding of these expected challenges while we build for your future. Report to the Outpatient Waiting Room, entrance under the green pavilion located off [address], at time _11:00AM____ on date __03/03/25___. Planned Procedure Time: __1:00PM____.? Time changes happen often and if your time is changed the preop area will call you the afternoon before. - You and your visitor will be asked to self-screen and do not enter if you have any COVID symptoms. Please call surgeon if you need to reschedule. - A mask is optional within the hospital at this time. Patients may have clear liquids (water, carbonated beverages, clear teas, apple juice) until 3 hours prior to surgery (10:00AM) with a maximum of 20 ounces. - No food from midnight until time of surgery and no smoking, or chewing tobacco (or any form of nicotine). No chewing gum, candy or mints. Take only the following medications with a SIP of water on the morning of surgery: ___NONE DO NOT STOP ANY OF YOUR OTHER PRESCRIPTION MEDICATIONS PRIOR TO SURGERY EXCEPT THE FOLLOWING Hold all vitamins and supplements for 3 days per anesthesiologist. LAST DOSE 02/27/25 Medications to discontinue per physician ___HOLD ALL ASPIRIN AND NSAIDS (NAPROXEN) 7 DAYS PRE-OP PER DR CHAVEZ Date to take last dose 02/23/25 Please no make-up, nail arabic, hairspray, perfume, deodorant, or body powder the day of surgery.? No jewelry (including any body piercings) or valuables the day of surgery, leave them at home.? Please take a shower or bath the night before, or the morning of, surgery with an antibacterial soap.? Wear comfortable, loose fitting clothing.? - Jewelry must be removed prior to entering the operating room.? Rings and piercings that are not removed may be cut off. - The hospital will not accept responsibility for valuables.? - Please leave all valuables, including medications, at home the day of surgery. If you are going home after surgery, a licensed carry all driver must drive you home.? - NO public transportation without another adult if you receive anesthesia. - We recommend that an adult stay with you for 24 hours following discharge. - We also recommend that you do not drive, make important decision, drink alcoholic beverages, or take any drugs that were not prescribed by your health care provider for at least 24 hours after your discharge time. Follow any additional instructions given to you from your surgeon. Telephone instructions given to ____PATIENT & FRIEND and asked if any additional questions and then verbalized understanding. Patient advised to call surgeon office or pre surgery nurse liaison [phone] if any additional questions.
[2025-02-06 13:09] LABS: Hematocrit 41.8 % (37.0-47.0); Hemoglobin 13.5 g/dL (12.0-15.0); Immature Granulocyte Percent A 0.3 % (0-0.5); Lymphocytes Absolute Auto 1.50 K/mm3 (0.9-3.2); Mean Corpuscular HGB Conc 32.3 g/dl (32-36); Mean Corpuscular Hemoglobin 31.3 pg (26-34); Mean Corpuscular Volume 96.8 fl (80-100); Nucleated Red Blood Cells Absolute Auto 0.000 K/mm3 (0.0-0.012); Nucleated Red Blood Cells Perc 0.0 % (0.0-0.2); Platelet Count Result 280 k/mm3 (150-375); Red Blood Count 4.32 M/mm3 (4.2-5.4); White Blood Count 9.5 K/mm3 (4.5-10.0)
[2025-02-06 13:22] LABS: Anion Gap 10 mmol/L (4-12); Blood Urea Nitrogen 22 mg/dL (7-17); Calcium 9.2 mg/dL (8.4-10.2); Carbon Dioxide 23 mmol/L (22-30); Chloride 105 mmol/L (98-107); Estimated Glomerular Filt Rate > 60; Glucose 98 mg/dL (65-110); Potassium 4.6 mmol/L (3.4-5.0); Sodium 138 mmol/L (137-145)
[2025-02-06 14:03] LABS: Hemoglobin A1C 5.4 % (<5.7)
[2025-02-06 14:21] LABS: MRSA (PCR) NOT DETECTED (NOT DETECTE)
== END 2025-02-06 11:27 | disposition home or self-care (01) ==
LOC: ANHSURGERY 11:31
PROVIDERS: Anesthesiology; PCP Family Medicine Adolescent Medicine; Visit Provider Orthopaedic Surgery
DX: Z01.818 Encounter for other preprocedural examination (principal); M17.11 Unilateral primary osteoarthritis, right knee; Z51.81 Encounter for therapeutic drug level monitoring
CPT/HCPCS: 36415; 80048; 80307; 83036; 85025; 87641

== ENCOUNTER 2025-03-03 00:52 | Day surgery (SDC) | payer MEDICARE, SELFPAY ==
[2025-02-06 12:07] VITALS: BP 153/68; PULSE 72; RESP 16; TEMP 36.4; O2SAT 100; BMI 38.3
--- NOTE | 2025-02-09 10:36 | PC.NURSE ---
[facility] has started construction of its new state of the art ER which will open Spring 2026. With this, we anticipate parking may be a challenge for some our surgical patients and families. Parking spaces are limited but are available for all Surgical, obstetrics, and ER patients sharing this lot. If you arrive and find you are having a hard time finding a parking space, please note that we understand the challenges, please drive around the hospital and park near Hospital Entrance 1. When you enter this entrance, you can ask a volunteer to direct or take you back to the surgical waiting area to check in. We appreciate everyone?s understanding of these expected challenges while we build for your future. Report to the Outpatient Waiting Room, entrance under the green pavilion located off [address], at time ___11:00AM___ on date ___03/03/25__. Planned Procedure Time: __1:00PM .? Time changes happen often and if your time is changed the preop area will call you the afternoon before. - You and your visitor will be asked to self-screen and do not enter if you have any COVID symptoms. Please call surgeon if you need to reschedule. - A mask is optional within the hospital at this time. Patients may have clear liquids (water, carbonated beverages, clear teas, apple juice) until 3 hours prior to surgery (10:00AM) with a maximum of 20 ounces. - No food from midnight until time of surgery and no smoking, or chewing tobacco (or any form of nicotine). No chewing gum, candy or mints. Take only the following medications with a SIP of water on the morning of surgery: ____NONE DO NOT STOP ANY OF YOUR OTHER PRESCRIPTION MEDICATIONS PRIOR TO SURGERY EXCEPT THE FOLLOWING Hold all vitamins and supplements for 3 days per anesthesiologist. LAST DOSE 02/27/25 Medications to discontinue per physician ____HOLD ALL ASPIRIN & NSAIDS(NAPROXEN) 7 DAYS PRE-OP PER DR CHAVEZ__ Date to take last dose___02/23/25 Please no make-up, nail urdu, hairspray, perfume, deodorant, or body powder the day of surgery.? No jewelry (including any body piercings) or valuables the day of surgery, leave them at home.? Please take a shower or bath the night before, or the morning of, surgery with an antibacterial soap.? Wear comfortable, loose fitting clothing.? - Jewelry must be removed prior to entering the operating room.? Rings and piercings that are not removed may be cut off. - The hospital will not accept responsibility for valuables.? - Please leave all valuables, including medications, at home the day of surgery. If you are going home after surgery, a licensed class a truck driver must drive you home.? - NO public transportation without another adult if you receive anesthesia. - We recommend that an adult stay with you for 24 hours following discharge. - We also recommend that you do not drive, make important decision, drink alcoholic beverages, or take any drugs that were not prescribed by your health care provider for at least 24 hours after your discharge time. Follow any additional instructions given to you from your surgeon. Telephone instructions given to PATIENT and asked if any additional questions and then verbalized understanding. Patient advised to call surgeon office or pre surgery nurse liaison [phone] if any additional questions.
[2025-03-03] VITALS (13 sets, daily range): BP systolic 130–153; BP diastolic 55–93; PULSE 68–95; RESP 12–20; TEMP 36.1–36.9; O2SAT 95–100
--- NOTE | ~2025-03-03 | XR_ITS ---
EXAMINATION: [id number], 03/03/2025 13:45 ELEVATORS INSPECTOR HISTORY: POST OP RIGHT TKA COMPARISON: No comparisons available. Findings: No acute fracture or malalignment. Arthroplasty intact Soft tissues unremarkable. Impression: No acute fracture or malalignment. Reviewed, dictated and finalized at location P. ATORS INSPECTOR Impression: No acute fracture or malalignment.
--- NOTE | 2025-03-03 07:27 | WPDHPUPDATE1 ---
History and Physical Update Update Date/Time: 03/03/25 07:27 History and Physical has been reviewed, including an updated exam of the patient. There are NO changes in the patient's condition. Risks, benefits, and alternatives have been discussed and questions answered. Patient agrees to proceed with procedure.
--- NOTE | 2025-03-03 10:02 | WPDANESEPPF ---
Anes - Initial Pre Proc Eval Procedure: Operation Date: 03/03/25 10:30 Proposed Procedures p Right Total Knee Arthroplasty - Pernell Case MD Date/Time: 03/03/25 10:02 Surgeon: Pernell Case MD Pre Op Diagnosis: prim oa rt knee Patient Data Age: 69 Gender: F Height: 1.6 m Weight: 98.2 kg Last Vital Signs Temp 97.6 F 02/06/25 12:07 Pulse 72 02/06/25 12:07 Resp 16 02/06/25 12:07 BP 153/68 H 02/06/25 12:07 Pulse Ox 100 02/06/25 12:07 O2 Del Method Room Air 02/06/25 12:07 Allergies Allergy/AdvReac Type Severity Reaction Status Date / Time Penicillins Allergy Intermediate Rash Verified 12/29/24 08:46 lisinopril AdvReac COUGH Verified 02/06/25 12:02 Home Medications ?Medication ?Instructions ?Recorded ?Confirmed ?Type multivitamin,dx-unmf-[id number] 1 tablet PO DAILY 01/26/20 02/06/25 History (Complete Multivitamin tablet) omeprazole 20 mg capsule,delayed 20 mg PO DAILY 01/26/20 02/06/25 History release naproxen 250 mg tablet 500 mg PO BID PRN pain 05/09/23 02/06/25 History aspirin 81 mg tablet,delayed 81 mg PO DAILY 09/05/23 02/06/25 History release valsartan 320 mg tablet 320 mg PO DAILY #90 tabs 07/15/24 02/06/25 Rx estradiol 0.025 mg/24 hr weekly 1 patch transdermal WEEKLY #12 08/18/24 02/06/25 Rx transdermal patch patches diphenhydramine HCl 25 mg tablet 50 mg PO QHS PRN insomnia 12/29/24 02/06/25 History estradiol 0.01% (0.1 mg/gram) 1 g vaginal 2XW 12/29/24 02/06/25 History vaginal cream loratadine 10 mg capsule (Allergy 10 mg PO DAILY 12/29/24 02/06/25 History Relief (loratadine)) spironolactone 25 mg tablet 25 mg PO DAILY #90 tabs 02/01/25 02/06/25 Rx capsaicin 0.035 % topical patch 1 patch topical Q8-12H PRN pain 02/06/25 02/06/25 History aspirin 81 mg tablet,delayed 81 mg PO BID 14 days #28 tabs 03/03/25 Rx release oxycodone-acetaminophen 5 mg-325 1 - 2 tablet PO Q4-6H PRN pain 7 03/03/25 Rx mg tablet days #30 tabs prednisone 5 mg tablet 5 mg PO DAILY 3 weeks #21 tabs 03/03/25 Rx Patient hx anesthesia problems: none Family hx anesthesia problems: none Results Review: All pre-operative results and documents have been reviewed as part of the pre-operative evaluation. [facility] Past Medical History Medical History History of bruising easily Varicose veins of both lower extremities Obstructive sleep apnea Allergies Menopausal disorder Acid reflux Surgical History Surgical History History of total left knee replacement (2012) History of section History of cholecystectomy H/O: hysterectomy Family History Family History Father Malignant neoplasm of prostate Family history of congenital heart disease Mother Family history of malignant neoplasm of breast in first degree relative Diabetes mellitus Social History Social History Smoking status: Never smoker Alcohol intake: current Substance use: never Substance use type: does not use Lack of Transportation: No Lack of Food: Never True Current Housing: I Have Housing Concerned About Future Housing: No Difficulty Paying Gas/Electric Bills: No Difficulty Paying for Meds: No Currently Unemployed: No Education: High School Diploma/GED Difficulty w/ Childcare or Family Care: No Living arrangements: with family Spiritual care concerns: No Anes - Eval Final PreProcedure Day of Procedure 03/03/25 10:02 Patient weight: obese Lungs: normal air movement Airway: Mallampati scale class II Neurological: alert and oriented Last oral intake: >/= 8 hours ASA classification: III Emergent: no Anesthetic plan: proceed Anesthesia type and monitoring: general ETT and standard monitoring Results Review: All pre-operative results and documents have been reviewed as part of the pre-operative evaluation. BMI 38, AZAR without CPAP, pt had recent stress testing which was neg for ishchemia, nml LVEF 66%. Informed Consent: The patient's anesthetic plan and its attendant risks and benefits were discussed with the patient/family/POA. Questions were solicited and answers provided to the satisfaction of the patient/family/POA.
[2025-03-03] MEDS: ACETAMINOPHEN 500 MG TABLET 1000 MG PO (10:16)
[2025-03-03] MEDS: LACTATED RINGERS 1,000 ML 30 ML IV CONT ×2 (10:25→13:45)
[2025-03-03] MEDS: TRANEXAMIC ACID 1,000MG/ISO100 1,000 MG/100 ML BAG 200 MG IVPB (10:26)
[2025-03-03] MEDS: ceFAZolin 2 GM in SODIUM CHLORIDE 0.9% IV 50 ML 100 ML IVPB ×2 (11:14→18:11)
[2025-03-03] MEDS: SODIUM CHLORIDE 0.9% IV 37.7 ML, MORPHINE SULFATE INJ (*CRX) 2 MG, ROPivacaine HCL 1% 2... INFILTRATE (11:33)
--- NOTE | 2025-03-03 12:38 | P.OP_ITS ---
Procedure Note - Detailed Date of Procedure 03/03/25 Pre-op Diagnosis Right knee degenerative arthritis. Post-op Diagnosis Same Procedure Performed Calipered, kinematically aligned total knee replacement right knee. Surgeon Pernell Case MD Digital Hardware Design Engineer Josey Alfaro PA-C Anesthesia General Findings According to the calipered kinematic alignment principles, the knee was balanced by the following verification checks incorporating 6 caliper measurements, using an insert goniometer to select the insert thickness, and adjusting the tibial resection following the kinematic alignment algorithm (see figure 160.10 published in [employer] chapter on kinematic alignment total knee arthroplasty.) The steps verified the femoral and tibial components were kinematically aligned coincident to the patient's pre arthritic joint lines, which closely restored the bill moore's slough tibial compartment forces and ligament laxities without ligament release. The [employer] knee, designed specifically for kinematic alignment, fit optimally. The record of verification checks were documented and scanned into the chart. Distal Femoral Resection: Distal Medial 6 mm(cartilage worn), Distal Lateral 6 mm(cartilage worn) Target thickness of 8mm Unworn, 6mm Worn (No Cartilage). Posterior Femoral Resection: Posterior Medial 5 mm(cartilage worn), Posterior Lateral 5 mm(cartilage worn) Target thickness of 7mm Unworn, 5mm Worn (No Cartilage). Description of Procedure General anesthesia was administered. A well-padded tourniquet was placed high on the thigh. The limb was prepped and draped in the usual sterile fashion. The limb was exsanguinated and the tourniquet inflated to 300 mmHg during exposure and cementation. A longitudinal incision was created over the midline of the knee. Sharp dissection was taken through subcutaneous tissues. Electrocautery was used for hemostasis. A subvastus approach to the knee joint was performed. The ACL, anterior horns of the menisci, and fat pad were excised, and a subperiosteal dissection was carried along the posterior medial border of the tibia. Starting midway between the top of the notch in the anterior femoral cortex, I drilled a 9 mm diameter hole parallel to the anterior cortex to minimize flexion of the femoral component and promote patella tracking. I verified the existence of a 5-10 mm bone bridge between the posterior aspect of the hole and the anterior limit of the intercondylar notch. An intraosseous positioning nelsy was inserted 10 cm into the femur perpendicular to the distal joint line and parallel to the anterior cortex. I used a distal femoral referencing guide that compensated 2 mm when the cartilage was worn on the distal medial femoral condyle, and 2 mm when the cartilage was worn on the distal lateral femoral condyle. The basis for setting the distal and posterior femoral resection guide is knowing that the varus and valgus grade II to IV Kellegren-Omkar osteoarthritic knees have negligible bone wear at 0? and 90? and that the mean full-thickness cartilage wear approximates 2 mm. I measured the thickness of distal femoral resections with a caliper to +/- 0.5 mm. The thickness of each resection was adjusted to match the thickness of the respective condyle of the femoral component within 0.5 mm of target after compensating for cartilage wear and kerf. When the distal resection was 1-2 mm too thin, a recut guide was used to adjust the cut. When the distal resection was too thick, a 1 or 2 mm thick washer was fixed to the back of the 4-in-1 chamfer block to wilfrid a corrective gap between the femoral component and distal femur. I set posterior femoral referencing guide at 0? orientation to position the pin holes for the 4 in 1 chamfer block. The abraham wing measured the width of the distal femoral resection and selected the size of the 4 in 1 chamfer block and femoral component. The AP sizer confirmed the size. I measured the thickness of the posterior femoral resections with a caliper before making the anterior and c hamfer cuts. I adjusted the thicknesses of each resection to match the thickness of the respective condyle of the femoral component within +/-0.5 mm after compensating for cartilage wear and curve. When a posterior resection femoral resection was 1-2 mm too thick or thin a corrective correction was made by shifting or rotating the 4 in 1 chamfer block as needed. The chamfer block was secured in the correct position with compression screws. The anterior and chamfer femoral resections were made. These caliper measurements and corrections verified that the femoral component was set coincident with the patient's pre-arthritic distal and posterior femoral joint lines. I removed all the medial and lateral femoral and tibial osteophytes to restore the pre arthritic length of the medial and lateral collateral ligaments. I vinny AP lines along the major axis of the lateral tibial plateau in between the tibial spines which identified the flexion extension plane of the knee. A conventional extramedullary tibial resection guide was applied to the ankle. An abraham wing was placed medially in the saw slot. The varus valgus angle of the tibial resection guide was adjusted until the guide paralleled the proximal tibial articular surface after compensating for cartilage and bone wear. The slope of flexion extension angle of the tibial resection guide was adjusted until the abraham wing paralleled the slope of the medial tibia after compensating for wear. The AP axis of the tibial resection guide was adjusted parallel to the two lines. The proximal tibia was resected, partially releasing the insertion of the posterior cruciate ligament. The thickness of the medial and lateral lateral tibial condyle was measured at the base of the tibial spines. I visually verified the slope of the medial border of the resection was parallel to the patient's pre arthritic slope after compensating for cartilage and bone wear. I removed the remnants of the posterior horns of the menisci and posterior osteophytes and cauterized the inferior lateral genicular vessels. The Aquamantys bipolar device was also used to for additional hemostasis. When the knee had a preoperative flexion contracture of 20? or more I teased the capsule off the posterior femur with a curved 3 quarter-inch osteotome. I administered the posterior femoral periosteal injection by delivering 10 cc using a 20 gauge spinal needle at the most medial and 10 cc at the most lateral femoral spur surface which reduced the risk of injury to the posterior neurovascular structures. I followed 6 options in a decision tree to fine tune the varus valgus and posterior slope orientation of the tibial component to restore the patient's pre arthritic tibial joint line and limb alignment. First, I adjusted the varus-haseeb jenn orientation of the proximal tibia resection working in 1 degree to 2 degree increments until there was negligible medial and lateral lift off of the distal femoral and proximal tibial resection from the spacer block during a varus valgus laxity assessment in extension. I selected the largest anatomic shape trial tibial base plate that fit within the cortical boundary of the proximal tibial resection. The base plate was best fit parallel to the cortical boundary which set the Internal-external orientation of the anterior to posterior and medial to lateral positions. The best fit method set the AP axis of the tibial base plate and insert parallel to the flexion extension plane of the pre arthritic knee. I pinned the trial tibial base plate, prepared the cruciate slot, and fixed the base plate to the tibia with the cruciate stem. I inserted the trial femoral component. The knee was placed in full extension. Varus valgus laxity is of the knee with trial components were assessed. When asymmetric laxity was observed a 1-2 degree varus or valgus recut guide was used to fine tune the tibial resection until the laxity was 1 degree or less in full extension like the bill moore's slough knee. The following steps determined the optimal insert thickness within +/-1 mm. First I inserted an insert goniometer that matched the thickness of the spacer block. I reduced the patella and then with the knee in maximum extension, I verified the knee hyperextended a few degrees and had negligible varus valgus laxity, like the pre arthritic knee. Next, I measured the external tibial orientation which was the angle the insert goniometer intersected the sagittal line on the medial condyle of the femoral trial component. Then with the knee in 15-30 degrees flexion I verified a 3-4 mm gap in the lateral compartment and no gap in the medial compartment during a 2nd varus valgus laxity test. Next, I placed the knee in 90? of flexion and the foot resting on the operating table and measured the internal tibial orientation. I repeated the steps until I identified the insert thickness that provided the highest external tibia orientation in extension and the highest internal tibial orientation at 90? flexion without anterior lift-off of the insert from the tibial base plate. The insert with this thickness was implanted. I applied a posterior drawer test with the tibia distracted by gravity and verified no posterior subluxation of the tibia relative to the femur. The thickness of the bill moore's slough patella was measured with a caliper. The patella was resected using the oscillating saw. The best fitting anatomic patella button was selected. The fixation holes were drilled. When the patella and patella buttons combined thickness was thicker than the bill moore's slough patella, the patella was recut. The patella remained centered on the trochlea and tracked well throughout the entire arc of flexion and extension. I used pulse lavage to clean the bony surfaces of debris and dried bone. I cemented the tibial, femoral, and patellar components using 1 bag of methylmethacrylate with Gentamycin, then rechecked the stability at full extension, 15-30 degrees, and 90? flexion and verified uatsdin of the entire arc of motion of the knee. The circulating nurse confirmed the sponge and needle counts were correct. I used pulse lavage to rinse the joint and wound. The extensor mechanism was closed with interrupted #1 Vicryl suture and #1 running Stratafix suture. The subcutaneous layer was closed with interrupted #1 Vicryl suture followed by 2-0 Stratafix and 3-0 Stratafix. Steri-Strips placed on the skin. Silver impregnated occlusive dressing applied to the wound. A light gauze wrap and Tee bandage were placed. The patient was transferred to the recovery room in stable condition. There were no complications. Implants Medacta GMK spheriKA Femoral component SpheriKA size 3, tibial component size 2, vitamin-E flex insert, thickness 12mm, Emmanuel patella implant size 3. Estimated Blood Loss 50 Drains No Pathology None sent Complications No immediate complications Condition Stable Disposition PACU [facility] Billing Surgery - Charge Forward: Surgery Billing
[2025-03-03] MEDS: TRANEXAMIC ACID 1,000 MG/10 ML AMPUL 1000 MG IV PUSH (13:15)
[2025-03-03] MEDS: fentaNYL CITRATE INJ (*CRX) 100 MCG/2 ML VIAL 25 MCG IV PUSH ×6 (14:09→14:35)
--- NOTE | 2025-03-03 15:10 | ADMGEN ---
This patient, Tory Santoyo, was admitted to [facility] S[facility] Room 311-01. Patient/family oriented to hospital policies and general routines including ID bracelet, bed and alarms, visiting hours, pain management, procedures, bathroom and other care routines, personal items, smoking policy, room service/diet, and visiting hours. Information on how to activate the Rapid Response Team has been discussed. Patient/Family are encouraged to report perceived risks to care and to ask questions if they do not understand what they are told or what they should do.
[2025-03-03] MEDS: ONDANSETRON INJ 4 MG/2 ML VIAL IV PUSH (15:43)
[2025-03-03] MEDS: SODIUM CHLORIDE 0.9% IV 1,000 ML 125 ML IV CONT (15:43)
[2025-03-03] MEDS: ACETAMINOPHEN 325 MG TABLET 650 MG PO ×3 (15:43→23:31)
[2025-03-03] MEDS: SENNA/DOCUSATE SODIUM TABLET 2 TAB PO (18:05)
[2025-03-03] MEDS: NAPROXEN 250 MG TABLET 500 MG PO (18:05)
[2025-03-03] MEDS: ASPIRIN 81 MG ENTERIC TABLET PO (20:25)
[2025-03-03] MEDS: FAMOTIDINE 20 MG TABLET PO (20:26)
[2025-03-04] MEDS: ceFAZolin 2 GM in SODIUM CHLORIDE 0.9% IV 50 ML 100 ML IVPB ×2 (02:10→09:36)
[2025-03-04 04:46] VITALS: BP 141/60; PULSE 87; RESP 16; TEMP 36.7; O2SAT 98
[2025-03-04] MEDS: ACETAMINOPHEN 325 MG TABLET 650 MG PO (05:12)
[2025-03-04 06:30] LABS: Hematocrit 37.3 % (37.0-47.0); Hemoglobin 11.9 g/dL (12.0-15.0); Immature Granulocyte Percent A 0.6 % (0-0.5); Lymphocytes Absolute Auto 0.81 K/mm3 (0.9-3.2); Mean Corpuscular HGB Conc 31.9 g/dl (32-36); Mean Corpuscular Hemoglobin 31.2 pg (26-34); Mean Corpuscular Volume 97.9 fl (80-100); Nucleated Red Blood Cells Absolute Auto 0.000 K/mm3 (0.0-0.012); Nucleated Red Blood Cells Perc 0.0 % (0.0-0.2); Platelet Count Result 227 k/mm3 (150-375); Red Blood Count 3.81 M/mm3 (4.2-5.4); White Blood Count 12.5 K/mm3 (4.5-10.0)
[2025-03-04 07:01] LABS: Anion Gap 4 mmol/L (4-12); Blood Urea Nitrogen 15 mg/dL (7-17); Calcium 8.5 mg/dL (8.4-10.2); Carbon Dioxide 25 mmol/L (22-30); Chloride 107 mmol/L (98-107); Estimated CRCL calculation 72 ml/min; Estimated Glomerular Filt Rate > 60; Glucose 107 mg/dL (65-110); Potassium 4.3 mmol/L (3.4-5.0); Sodium 136 mmol/L (137-145)
--- NOTE | 2025-03-04 07:53 | PM.PNORT ---
Progress Note: A&P Assessment and Plan (1) Status post total right knee replacement: Code(s): Z96.651 - Presence of right artificial knee joint Status: Acute Assessment and Plan: Postop day 1: total knee arthroplasty. Patient tolerated procedure well. No complications. Pain manageable with pain medication. No numbness or tingling. We had a lengthy discussion regarding postoperative wound care, limitations, expectations, and exercises. Patient shows good understanding. She has had initial physical therapy and is tolerating it well. DVT prophylaxis: 81 mg baby aspirin b.i.d. for 14 days. Pain medication: Percocet. Patient has followup appointment with Dr. Case in 3 weeks. Subjective Subjective Date/Time Seen: 03/04/25 07:53 Interval history: Patient resting comfortably. No distal numbness or tingling. No other complaints. Review of Systems Review of Systems: All systems reviewed & are unremarkable except as noted in HPI and below Exam Narrative: 69-year-old overweight female. Resting comfortably in chair. Alert and oriented x3. No acute distress. Wearing compression socks bilaterally. Dressing dry and intact without drainage. Mild swelling. No ecchymosis. No erythema. No hematoma. Range of motion limited due to pain. Calf nontender. Neurologic status intact. No varicosities. Distal pulses palpable. quad fires. Objective Data Vital Signs Vital Signs: Vital Signs - 24 hr 03/03/25 10:10 03/03/25 13:45 03/03/25 14:00 Temperature 97.7 F 98.4 F Pulse Rate 95 94 87 Respiratory Rate 20 16 12 Blood Pressure 153/76 H 139/63 139/65 Pulse Oximetry 100 100 100 Oxygen Delivery Room Air Simple Face Mask Simple Face Mask Oxygen Flow Rate 8 8 03/03/25 14:15 03/03/25 14:30 03/03/25 14:45 Temperature Pulse Rate 87 89 84 Respiratory Rate 20 14 12 Blood Pressure 136/69 142/66 H 132/62 Pulse Oximetry 95 100 99 Oxygen Delivery Room Air Room Air Nasal Cannula Oxygen Flow Rate 2 03/03/25 15:00 03/03/25 15:15 03/03/25 15:30 Temperature 97.2 F L 97.4 F L Pulse Rate 82 88 84 Respiratory Rate 12 18 16 Blood Pressure 130/56 L 142/77 H 150/65 H Pulse Oximetry 100 100 100 Oxygen Delivery Simple Face Mask Oxygen Flow Rate 8 03/03/25 16:00 03/03/25 17:00 03/03/25 20:19 Temperature 97.0 F L 97.8 F 98.5 F Pulse Rate 82 86 79 Respiratory Rate 18 18 16 Blood Pressure 142/65 H 152/93 H 149/55 H Pulse Oximetry 100 100 100 Oxygen Delivery Oxygen Flow Rate 03/03/25 23:17 03/04/25 04:46 Temperature 98.3 F 98.0 F Pulse Rate 68 87 Respiratory Rate 16 16 Blood Pressure 145/57 H 141/60 H Pulse Oximetry 98 98 Oxygen Delivery Oxygen Flow Rate Intake/Output Intake/Output: Intake & Output 03/01/25 03/02/25 03/03/25 03/04/25 23:59 23:59 23:59 23:59 Intake Total 840 Balance 840 Meds/Results Medications: Active Medications Generic Name Dose Route Start Last Admin Trade Name Freq PRN Reason Stop Dose Admin Acetaminophen 650 mg 03/03/25 15:01 03/04/25 05:12 Acetaminophen 325 Mg Tablet PO 650 mg Q6HR TEOFILO Administration Aspirin 81 mg 03/03/25 21:00 03/03/25 20:25 Aspirin 81 Mg Enteric Tablet PO 81 mg Q12HR TEOFILO Administration Cyclobenzaprine HCl 5 mg 03/03/25 15:01 Cyclobenzaprine Hcl 5 Mg Tablet PO Q8H PRN Spasms Diphenhydramine HCl 50 mg 03/03/25 15:01 Diphenhydramine Hcl Cap 25 Mg Capsule PO QHS PRN Insomnia Diphenhydramine HCl 25 mg 03/03/25 15:01 Diphenhydramine Hcl Inj 50 Mg/Ml Vial IV PUSH Q6H PRN Itching Estradiol applic 03/03/25 15:01 Estradiol Vaginal Cream 42.5 Gm VAGINAL 2XW [facility] Estradiol 0.025 mg 03/07/25 09:00 Estradiol 7 Day 0.025 Mg Patch TRANSDERM WEEKLY [facility] Famotidine 20 mg 03/03/25 21:00 03/03/25 20:26 Famotidine 20 Mg Tablet PO 20 mg Q12HR TEOFILO Administration Hydromorphone HCl 1 mg 03/03/25 15:01 Hydromorphone Hcl Inj (*Crx) 1 Mg/Ml Syr IV PUSH Q2H PRN Breakthrough Pain Rated 7-10 or NPO Hydromorphone HCl 0.5 mg 03/03/25 15:01 Hydromorphone Hcl Inj (*Crx) 1 Mg/Ml Syr IV PUSH Q2H PRN Breakthrough Pain Rated 4-6 or NPO Cefazolin Sodium 2 gm/ Sodium 50 mls @ 100 mls/hr 03/03/25 19:00 03/04/25 02:10 Chloride IVPB 03/04/25 11:29 100 mls/hr Q8H TEOFILO Administration Loratadine 10 mg 03/04/25 09:00 Loratadine 10 Mg Tablet PO DAILY [facility] Miscellaneous Information 0 each 03/03/25 00:01 03/04/25 00:34 Estradiol Cream Twice A Week Which Days Used? XX 04/02/25 00:00 Not Given CLARIFY [facility] Naloxone HCl 0.1 mg 03/03/25 15:01 Naloxone Hcl 0.4 Mg/Ml Vial IV PUSH Q2M PRN Opiate Reversal Naproxen 500 mg 03/03/25 17:00 03/03/25 18:05 Naproxen 250 Mg Tablet PO 500 mg BID [facility] Administration Ondansetron HCl 4 mg 03/03/25 15:01 03/03/25 15:43 Ondansetron Inj 4 Mg/2 Ml Vial IV PUSH 4 mg Q4H PRN Administration Nausea And Vomiting Oxycodone/Acetaminophen 1 tablet 03/03/25 15:01 Oxycodone/Acetaminophen (*Crx) 5-325 Mg Tablet PO Q4H PRN Pain Rated 4-6 Oxycodone/Acetaminophen 1 tab 03/03/25 15:01 Oxycodone/Acetaminophen (*Crx) 10-325 Mg Tablet PO Q6H PRN Pain Rated 7-10 Pantoprazole Sodium 40 mg 03/04/25 09:00 Pantoprazole 40 Mg Tablet PO DAILY [facility] Polyethylene Glycol 17 gm 03/04/25 09:00 Polyethylene Glycol 3350 17 Gm Powd.Pack PO QAM [facility] Prednisone 5 mg 03/03/25 17:00 03/03/25 18:05 Prednisone 5 Mg Tablet PO 5 mg DAILY@1700 [facility] Administration Senna/Docusate Sodium 2 tab 03/03/25 17:00 03/03/25 18:05 Senna/Docusate Sodium Tablet PO 2 tab BID [facility] Administration Spironolactone 25 mg 03/04/25 09:00 Spironolactone 25 Mg Tablet PO DAILY [facility] Tramadol HCl 50 mg 03/03/25 15:01 Tramadol Hcl (*Crx) 50 Mg Tablet PO Q4H PRN Pain Rated 1-3 Valsartan 320 mg 03/04/25 09:00 Valsartan 160 Mg Tablet PO DAILY [facility] Radiology Results: ITS Impressions Knee X-Ray 03/03/25 13:57 Impression: No acute fracture or malalignment. Labs Labs: Laboratory Results - last 24 hr 03/03/25 03/04/25 10:25 05:47 WBC 12.5 H RBC 3.81 L Hgb 11.9 L Hct 37.3 MCV 97.9 MCH 31.2 MCHC 31.9 L RDW 13.0 Plt Count 227 MPV 11.0 H Immature Gran % (Auto) 0.6 H Neut % (Auto) 83.0 H Lymph % (Auto) 6.5 L [place] % (Auto) 9.7 H Eos % (Auto) 0.0 Baso % (Auto) 0.2 Lymph # (Auto) 0.81 L [place] # (Auto) 1.2 H Eos # (Auto) 0.0 Baso # (Auto) 0.0 Abs Immat Gran (auto) 0.07 H Absolute Neuts (auto) 10.4 H Absolute Nucleated RBC 0.000 Nucleated RBC % 0.0 Sodium 136 L Potassium 4.3 Chloride 107 Carbon Dioxide 25 Anion Gap 4 BUN 15 D Creatinine 0.70 Estim Creat Clear Calc 72 Estimated GFR > 60 Glucose 107 Calcium 8.5 Blood Type A Positive Antibody Screen Negative
[2025-03-04 08:01] VITALS: BP 156/61; PULSE 74; RESP 18; TEMP 36.7; O2SAT 100
[2025-03-04] MEDS: NAPROXEN 250 MG TABLET 500 MG PO (08:09)
[2025-03-04] MEDS: oxyCODONE/ACETAMINOPHEN (*CRX) 5-325 MG TABLET 1 TABLET PO (08:09)
[2025-03-04] MEDS: LORATADINE 10 MG TABLET PO (08:09)
[2025-03-04 08:10] VITALS: PULSE 86; O2SAT 98
[2025-03-04] MEDS: SENNA/DOCUSATE SODIUM TABLET 2 TAB PO (08:10)
[2025-03-04] MEDS: ASPIRIN 81 MG ENTERIC TABLET PO (08:10)
[2025-03-04] MEDS: FAMOTIDINE 20 MG TABLET PO (08:10)
[2025-03-04] MEDS: VALSARTAN 160 MG TABLET 320 MG PO (08:10)
[2025-03-04] MEDS: SPIRONOLACTONE 25 MG TABLET PO (08:10)
[2025-03-04] MEDS: PANTOPRAZOLE 40 MG TABLET PO (08:10)
== END 2025-03-04 10:55 | disposition home or self-care (01) ==
LOC: ANHSURGERY 10:01 → ANH3MEDSUR 15:03
PROVIDERS: Physician Assistant Surgical; PCP Family Medicine Adolescent Medicine; Visit Provider Orthopaedic Surgery
PROC: (CPT 27447; principal; 2025-03-03 10:30)
DX: M17.11 Unilateral primary osteoarthritis, right knee (principal); M25.761 Osteophyte, right knee; K21.9 Gastro-esophageal reflux disease without esophagitis; G47.33 Obstructive sleep apnea (adult) (pediatric); N95.9 Unspecified menopausal and perimenopausal disorder; E66.9 Obesity, unspecified; Z68.37 Body mass index [BMI] 37.0-37.9, adult; Z79.1 Long term (current) use of non-steroidal anti-inflammatories (NSAID); Z79.82 Long term (current) use of aspirin; Z79.891 Long term (current) use of opiate analgesic; Z79.52 Long term (current) use of systemic steroids; Z98.890 Other specified postprocedural states; Z90.49 Acquired absence of other specified parts of digestive tract; Z96.652 Presence of left artificial knee joint; Z80.42 Family history of malignant neoplasm of prostate; Z80.3 Family history of malignant neoplasm of breast; Z82.49 Family history of ischemic heart disease and other diseases of the circulatory system
CPT/HCPCS: 27447; 36415; 73560; 80048; 85025; 86850; 86900; 86901; 97110; 97161; 97166; C1776; J0690; A9270; C1713; J0166; J1100; J1885; J2003; J2250; J2270; J2405; J2704; J2795; J3010; J3290; J7030; J7120; J7512